=== PATIENT | male | born 1955 | race Caucasian/White ===

== ENCOUNTER → 2022-12-31 15:11 | Outpatient (BNVA) | payer MEDICARE, SELFPAY | PROVIDERS: Visit Provider Internal Medicine Cardiovascular Disease | DX: R01.1 Cardiac murmur, unspecified (principal); I35.0 Nonrheumatic aortic (valve) stenosis; I10 Essential (primary) hypertension; Z87.891 Personal history of nicotine dependence | CPT/HCPCS: 93005; 99203 ==

== ENCOUNTER → 2022-12-31 15:14 | Outpatient (BNVA) | payer MEDICARE, SELFPAY | PROVIDERS: Visit Provider Internal Medicine Cardiovascular Disease | DX: R01.1 Cardiac murmur, unspecified (principal) | CPT/HCPCS: 93005 ==

== ENCOUNTER 2023-01-23 09:06 | Outpatient (CLI) | payer MEDICARE, SELFPAY ==
--- NOTE | 2023-01-23 09:30 | USCV_ITS ---
Rad Gamble Age: 67 Gender: M : 1955 Exam Date: 01/23/2023 09:25 Ordering Phys: Cassadnra Gaines MD ([email or web address]) Technologist: Keshav Bingham Exam Location: [facility] [place] Indication: heart murmur BP: 164 / 84 HR: 56 Rhythm: Sinus Technical Quality: Adequate MEASUREMENTS (Male / Female) Normal Values 2D ECHO LVOT Diameter 2.1 cm LV Ejection Fraction MOD 2C 70.4 % LV Ejection Fraction 2C AL 69.9 % LA Diameter 3.3 cm LA Width 4.2 cm LA Height 4.9 cm RA Width 3.6 cm RA Height 4.2 cm Aorta at Sinotubular Diameter 2.2 cm IVC Diameter 1.7 cm M-MODE Aortic Annulus Diameter 3.4 cm LA Ao Ratio MM 1.0 MV E Point Septal Separation 0.4 cm DOPPLER AV Peak Velocity 253.3 cm/s LVOT Peak Velocity 138.0 cm/s AV Area Cont Eq vti 2.2 cm squared AV Area Cont Eq pk 1.8 cm squared MV Peak Velocity 107.0 cm/s MV Area PHT 5.0 cm squared Mitral E to A Ratio 0.8 MV E' Velocity 35.5 cm/s Mitral E to MV E' Ratio 7.3 Mitral E to LV E' Lateral Ratio 6.0 Mitral E to LV E' Septal Ratio 9.1 TR Peak Velocity 319.3 cm/s TR Peak Gradient 40.8 mmHg TR Mean Velocity 241.9 cm/s TR Mean Gradient 25.2 mmHg TR Velocity Time Integral 79.6 cm Right Atrial Pressure 3.0 mmHg Pulmonary Artery Systolic Pressu 43.8 mmHg PV Peak Velocity 115.0 cm/s RV Acceleration Time 0.1 s RV Ejection Time 0.3 s RV AcT/ET 0.2 FINDINGS Left Ventricle Left ventricle is normal in size. LV systolic function is normal with EF of 60 to 65%. No regional wall motion abnormalities are seen. Grade 1 diastolic dysfunction. Right Ventricle Normal in size and function Right Atrium Normal in size Left Atrium Dilated Mitral Valve Mild mitral annular calcification. Trace mitral regurgitation. Aortic Valve Aortic valve is thickened. Mild aortic regurgitation. Mild aortic stenosis with mean gradient across aortic valve of 14 mmHg and aortic valve area of 2 cm squared. Tricuspid Valve Mild tricuspid regurgitation. RVSP is 40 to 45 mmHg. This is consistent with mild pulmonary hypertension Pulmonic Valve Not well-visualized Pericardium Normal Aorta Normal in size IVC Appears to be normal CONCLUSIONS LV systolic function is normal with EF of 60 to 65%. Grade 1 diastolic dysfunction. Left atrial dilation Trace mitral regurgitation Mild aortic regurgitation. Mild aortic stenosis. Mild tricuspid regurgitation Mild pulmonary hypertension No comparison studies are available Tay Tobias MD (Electronically Signed) Final Date: 02 February 2023 14:18 S
== END 2023-01-23 09:07 | disposition home or self-care (01) ==
PROVIDERS: PCP Registered Nurse; Visit Provider Internal Medicine Cardiovascular Disease
DX: R01.1 Cardiac murmur, unspecified (principal)
CPT/HCPCS: 93306; 99203

== ENCOUNTER → 2023-07-01 13:59 | Outpatient (BNVA) | payer MEDICARE, SELFPAY | PROVIDERS: PCP Registered Nurse; Visit Provider Internal Medicine Cardiovascular Disease | DX: R01.1 Cardiac murmur, unspecified (principal); I35.0 Nonrheumatic aortic (valve) stenosis; I10 Essential (primary) hypertension; Z87.891 Personal history of nicotine dependence | CPT/HCPCS: 99214 ==

== ENCOUNTER → 2024-07-01 10:45 | Outpatient (BNVA) | payer MEDICARE, SELFPAY | PROVIDERS: PCP Registered Nurse; Visit Provider Internal Medicine Cardiovascular Disease | DX: R07.9 Chest pain, unspecified (principal) | CPT/HCPCS: 93005 ==

== ENCOUNTER 2024-07-14 09:28 | Outpatient (CLI) | payer MEDICARE, SELFPAY ==
--- NOTE | 2024-07-14 09:30 | USCV_ITS ---
TyeRad leone Age: 69 Gender: M : 1955 Exam Date: 07/14/2024 09:57 Ordering Phys: Cynthia Junior MD ([email or web address]) Technologist: CT Exam Location: [facility] – [place] Indication: Risk Factors: Previous Vascular Surgery: Right Brachial BP: / Left Brachial BP: / Right Left Velocity (cm/s) Spectral Plaque Velocity (cm/s) Spectral Plaque Syst/Diast Broadening Syst/Diast Broadening 100.90/19.30 Prox CCA 91.90 / 18.20 98.30/ 20.60 Mid CCA 80.00 / 18.00 93.20/ 21.90 Distal CCA 73.70 / 18.00 86.90/ 19.40 Prox ICA 60.90 / 13.20 63.90/ 18.90 Mid ICA 100.70/ 29.30 85.00/ 21.10 Distal ICA 84.20 / 24.20 130.50 ECA 70.50 0.90 ICA/CCA 1.40 Antegrade Vertebral Antegrade 55.40/ 19.00 cm/s 42.00/ 7.70 cm/s Tri Subclavian Tri 109.0 161.0 0 0 FINDINGS Intimal thickening and minimal plaque at the bifurcations bilaterally. Antegrade flow in the vertebral arteries bilaterally Normal Doppler flow velocities in the external carotid, subclavian and vertebral arteries bilaterally CONCLUSIONS Intimal thickening and minimal plaque at the bifurcations bilaterally, suggesting less than 50% stenosis. No significant stenosis in the vertebral, subclavian and carotid arteries, based on the flow velocities Dr Cynthia Junior MD [facility] (Electronically Signed) Final Date: 24 July 2024 10:04 S
== END 2024-07-14 09:29 | disposition home or self-care (01) ==
PROVIDERS: PCP Registered Nurse; Visit Provider Internal Medicine Cardiovascular Disease
DX: I65.23 Occlusion and stenosis of bilateral carotid arteries (principal)
CPT/HCPCS: 93880

== ENCOUNTER → 2024-12-29 10:21 | Outpatient (BNVA) | payer MEDICARE, SELFPAY | PROVIDERS: PCP Registered Nurse; Visit Provider Nurse Practitioner Family | DX: I10 Essential (primary) hypertension (principal); I35.0 Nonrheumatic aortic (valve) stenosis; I65.21 Occlusion and stenosis of right carotid artery; Z79.82 Long term (current) use of aspirin; Z87.891 Personal history of nicotine dependence | CPT/HCPCS: 99213 ==

== ENCOUNTER → 2025-07-22 13:41 | Outpatient (BNVA) | payer MEDICARE, SELFPAY | PROVIDERS: PCP Registered Nurse; Visit Provider Internal Medicine Cardiovascular Disease | DX: I35.0 Nonrheumatic aortic (valve) stenosis (principal); I10 Essential (primary) hypertension; I65.23 Occlusion and stenosis of bilateral carotid arteries; Z87.891 Personal history of nicotine dependence; R06.09 Other forms of dyspnea | CPT/HCPCS: 99214 ==